=== PATIENT | male | born 1995 | race Two or more races ===

== ENCOUNTER 2022-07-03 14:35 | Emergency (ER) | payer OTHER ==
[~2022-07-03] VITALS: Ht 177.8 cm; Wt 72.6 kg
== END 2022-07-03 17:17 | disposition home or self-care (01) ==
LOC: ED 14:35
DX: S63.267A Dislocation of metacarpophalangeal joint of left little finger, initial encounter (principal); W18.09XA Striking against other object with subsequent fall, initial encounter
CPT/HCPCS: 73130; 90715